=== PATIENT | female | born 1985 | race Caucasian/White ===

== ENCOUNTER 2022-12-15 17:59 | Emergency (ER) | payer OTHER ==
[~2022-12-15] VITALS: Ht 170.2 cm; Wt 77.1 kg
--- NOTE | 2022-12-15 18:10 | NUR ---
not sure how many weeks, G4, P0, A3, +yeast infection
[2022-12-15 19:24] LABS: BILIRUBIN,URINE NEGATIVE (NEGATIVE); COLOR,URINE YELLOW (YELLOW); LEUKOCYTE ESTERASE ,URINE NEGATIVE (NEGATIVE); NITRITE, URINE NEGATIVE (NEGATIVE); PROTEIN,URINE NEGATIVE (NEGATIVE); UGLUCOSE NEGATIVE (NEGATIVE); UROBILINOGEN,URINE 0.2 EU/dL (0.2)
--- NOTE | 2022-12-15 20:22 | NUR ---
ACCOMPANIED DR MONTEIRO FOR PELVIC EXAM AND SPECIMEN COLLECTION. SPECIMEN SENT TO LAB
--- NOTE | 2022-12-15 21:53 | NUR ---
Patient discharged to home in stable condition. Written and verbal after care instructions given. Patient verbalizes understanding of instruction.
[2022-12-15 21:54] VITALS: BP 118/72
== END 2022-12-15 21:54 | disposition home or self-care (01) ==
LOC: ER 18:01
DX: O26.891 Other specified pregnancy related conditions, first trimester (principal); N89.8 Other specified noninflammatory disorders of vagina; Z3A.08 8 weeks gestation of pregnancy; Z88.2 Allergy status to sulfonamides
CPT/HCPCS: 36415; 76805-TC; 86592; 86593; 87210-TC; 87491; 87591; 87806